=== PATIENT | female | born 1960 | race Caucasian/White ===

== ENCOUNTER → 2017-08-09 | Outpatient (CLI) | payer OTHER | END | disposition home or self-care (01) | LOC: RADPV 12:00 | PROVIDERS: ATTEND Nurse Practitioner | DX: M65.331 Trigger finger, right middle finger (principal) ==

== ENCOUNTER → 2017-12-11 | Outpatient (CLI) | payer OTHER | END | disposition home or self-care (01) | LOC: RADPV 12:59 | PROVIDERS: ATTEND Nurse Practitioner | DX: E04.9 Nontoxic goiter, unspecified (principal) | CPT/HCPCS: 76536 ==